=== PATIENT | female | born 1990 | race Caucasian/White ===

== ENCOUNTER 2016-10-12 11:58 | Emergency (ER) | payer OTHER ==
[2016-10-12 12:06] VITALS: RESP 18
--- NOTE | 2016-10-12 12:29 | ED ---
Overdose HPI - General Chief Complaint: Overdose Stated Complaint: Overdose Time Seen by Provider: 10/12/16 11:58 Source: patient, EMS, RN notes reviewed Mode of arrival: EMS Limitations: no limitations - History of Present Illness Initial Comments: This is a 26-year-old female with a history of heroin abuse who states she's been clean for 6 months but decided to start some heroin earlier this morning. EMS was called because of her unresponsiveness. CPR and she was performed by a witness for one or 2 minutes. When EMS arrived patient was awake but still lethargic she was given 1 mg of Narcan and she did wake up. She denies any other complaints she denies any other drugs other than marijuana. She denies any chest pain shortness of breath fevers chills sweats or other symptoms she denies any chance of being at this time. This was an accidental overdose she states she was not trying to hurt herself. MD Complaint: accidental overdose - Related Data Home Medications Medication Instructions Recorded Confirmed No Known Home Medications [No 10/12/16 10/12/16 Known Home Medications] Allergies Allergy/AdvReac Type Severity Reaction Status Date / Time No Known Allergies Allergy Verified 10/12/16 12:32 Review of Systems ROS Statement: Those systems with pertinent positive or pertinent negative responses have been documented in the HPI. ROS Other: All systems not noted in ROS Statement are negative. Past Medical History Past Medical History: No Reported History Additional Past Medical History / Comment(s): CHRONIC BACK PAIN History of Any Multi-Drug Resistant Organisms: None Reported Past Surgical History: Back Surgery, Orthopedic Surgery Past Psychological History: Anxiety Smoking Status: Current every day smoker Past Alcohol Use History: None Reported Past Drug Use History: Heroin, Marijuana General Exam - General Exam Comments Initial Comments: This is a well-developed well-nourished awake alert oriented 3 female Limitations: no limitations General appearance: alert, in no apparent distress Head exam: Present: atraumatic, normocephalic, normal inspection Eye exam: Present: normal appearance, PERRL, EOMI. Absent: scleral icterus, conjunctival injection, periorbital swelling ENT exam: Present: normal exam, mucous membranes moist Neck exam: Present: normal inspection. Absent: tenderness, meningismus, lymphadenopathy Respiratory exam: Present: normal lung sounds bilaterally. Absent: respiratory distress, wheezes, rales, rhonchi, stridor Cardiovascular Exam: Present: regular rate, normal rhythm, normal heart sounds. Absent: systolic murmur, diastolic murmur, rubs, gallop, clicks GI/Abdominal exam: Present: soft, normal bowel sounds. Absent: distended, tenderness, guarding, rebound, rigid Extremities exam: Present: normal inspection, full ROM, normal capillary refill. Absent: tenderness, pedal edema, joint swelling, calf tenderness Back exam: Present: normal inspection Neurological exam: Present: alert, oriented X3, CN II-XII intact Psychiatric exam: Present: normal mood, flat affect Skin exam: Present: warm, dry, intact, normal color. Absent: rash Course Vital Signs 10/12/16 10/12/16 10/12/16 12:02 12:48 13:24 Temperature 98.6 F Pulse Rate 81 89 61 Respiratory 18 18 18 Rate Blood Pressure 117/66 125/78 114/67 O2 Sat by Pulse 100 98 97 Oximetry Medical Decision Making - Medical Decision Making I did a long discussion with the patient regarding the findings. X-rays and EKG were within normal limits. There is some question whether the patient was truthful with snorting the heroin versus injection. She was advised to quit using heroin I did discuss in depth the findings with her and the fact that she did almost today. She will be discharged she states she will not use heroin again. - EKG Data -: EKG Interpreted by Me EKG shows normal: sinus rhythm, axis, intervals, QRS complexes (EKG shows normal sinus rhythm of 64 [place] interval 176 QRS duration 84 QT/QTC of 398/[address]-T wave configuration.) - Radiology Data Radiology results: report reviewed (I did review the x-ray report no acute findings.), image reviewed Disposition Clinical Impression: Accidental heroin overdose Disposition: HOME SELF-CARE Condition: Good Instructions: Narcotic Abuse (ED)
--- NOTE | 2016-10-12 13:38 | XR ---
EXAMINATION TYPE: XR chest 2V DATE OF EXAM: 10/12/2016 1:28 PM COMPARISON: 03/23/2015 HISTORY: Cough FINDINGS: The lungs are clear and there is no pneumothorax, pleural effusion, or focal pneumonia. IMPRESSION: 1. No acute process.
[2016-10-12 14:08] VITALS: BP 111/61; PULSE 69; TEMP 98
== END 2016-10-12 14:08 | disposition home or self-care (01) ==
LOC: EC 11:58
DX: T40.1X1A Poisoning by heroin, accidental (unintentional), initial encounter (principal); F17.200 Nicotine dependence, unspecified, uncomplicated
CPT/HCPCS: 71020; 93005; 99284